=== PATIENT | male | born 1935 | race Caucasian/White ===

== ENCOUNTER 2019-01-12 09:15 | Inpatient (IN) ==
--- NOTE | 2019-01-12 09:59 | Diag Imaging Result Doc PS360 ---
EXAM: CT HEAD W/O CONTRAST 01/12/2019 HISTORY: STROKE TECHNIQUE: This exam was performed using automated exposure control, adjustment of mA or kV according to patient size, and/or use of iterative reconstruction technique. COMMENT: There are no previous studies available for comparison. There are calcifications in the globus pallidus bilaterally. There is CSF density fluid asymmetrically in the subdural space on the right side which may indicate a chronic subdural hematoma. This is a maximum of 12 mm in thickness. The brain is slightly shifted to the left by about 3 mm. There is no evidence of intracerebral mass or bleed. There is some diminishment in density of the insular cortex on the right side compared to the left (insular ribbon sign) which may be indicative of infarct. There is calcification of the pineal gland. The calvarium appears to be intact. There is mucosal thickening in many of the ethmoid air cells and both maxillary sinuses. There are no air-fluid levels. IMPRESSION: 1. Right chronic subdural fluid collection/hygroma. 2. Cortical encephalomalacia involving the right insula. This may indicate a chronic or subacute infarction. Electronically signed by Tristian Jon 01/12/2019 9:57 AM
[2019-01-12 10:05] LABS: BASO# 0.02 X1000 (0.0-0.2); BASO% 0.3 % (0.0-0.8); EOS# 0.09 X1000 (0.0-0.7); EOS% 1.3 % (0.0-10.0); HEMATOCRIT 33.4 % (42.0-52.0); HEMOGLOBIN 10.6 g/dL (14.0-18.0); IMM GRAN# 0.02 X1000 (0.0-0.04); IMM GRAN% 0.3 % (0.0-0.5); LYMPH# 0.37 X1000 (1.2-3.4); LYMPH% 5.3 % (20.5-51.1); MCH 31.2 PG (27-31); MCHC 31.7 g/dL (33-37); MCV 98.2 FL (81-99); MONO# 0.71 X1000 (0.11-0.59); MONO% 10.2 % (1.7-9.3); MPV 10.8 FL (7.4-10.4); NEUT# 5.73 X1000 (1.4-6.5); NEUT% 82.6 % (42.2-75.2); PLT 139 X1000 (130-400); RDW 17.5 % (11.5-14.5); WBC 6.94 X1000 (4.8-10.8)
[2019-01-12 10:24] LABS: MAGNESIUM 1.8 mg/dL (1.5-2.7)
[2019-01-12] MEDS ORDERED: ASPIRIN PR ONE (10:28)
[2019-01-12] MEDS ORDERED: NS 1,000 ML IV ONE ×2 (10:29→16:13)
--- NOTE | 2019-01-12 10:29 | Diag Imaging Result Doc PS360 ---
CHEST-PORTABLE - 01/12/2019 INDICATION: STROKE COMPARISON: 06/09/2018 FINDINGS: Positioning is improper. Stable right chest port in good position. There is increasing collapse of the left lung base with volume loss and opacification. IMPRESSION: Left basilar collapse. Electronically signed by Cameron Crane 01/12/2019 10:26 AM
[2019-01-12 10:43] LABS: AGAP 6; ALB/GLOB RATIO 1.2; ALBUMIN 3.6 g/dL (3.5-5.0); ALKALINE PHOSPHATASE 117 U/L (32-122); BUN 27 mg/dL (8-22); CALCIUM 9.8 mg/dL (8.8-10.2); CHLORIDE 106 mmol/L (98-107); COSMO 289; CREATININE 0.8 mg/dL (0.7-1.2); ESTIMATED GFR > 60; GLUCOSE 112 mg/dL (70-104); GOT 23 U/L (10-34); GPT 11 U/L (10-44); POTASSIUM 4.2 mmol/L (3.5-5.1); SODIUM 142 mmol/L (136-145); TCO2 30 mmol/L (25-35); TOTAL BILIRUBIN 0.83 mg/dL (0.20-1.00); TOTAL PROTEIN 6.7 g/dL (6.3-8.3)
--- NOTE | 2019-01-12 11:52 | EKG Report ---
Test Performed on : 01/12/2019 09:32:50 AM Test Reason : STORKE Blood Pressure : / mmHG Vent. Rate : 094 BPM Atrial Rate : 094 BPM P-R Int : 172 ms QRS Dur : 128 ms QT Int : 402 ms P-R-T Axes : 038 -81 117 degrees QTc Int : 502 ms Normal sinus rhythm. Right bundle branch block Left anterior fascicular block Bifascicular block Lateral infarct , age undetermined Abnormal ECG When compared with ECG of 20-APR-2017 06:41, LA interval has decreased Vent. rate has increased BY 44 BPM Questionable change in QRS duration Unconfirmed Result
[2019-01-12 13:42] LABS: BILIRUBIN URINE NEGATIVE (NEGATIVE); BLOOD URINE NEGATIVE (NEGATIVE); COLOR YELLOW; GLUCOSE URINE NEGATIVE (NEGATIVE); KETONE URINE NEGATIVE (NEGATIVE); LEUKOCYTES URINE NEGATIVE (NEGATIVE); NITRITE URINE NEGATIVE (NEGATIVE); PH URINE 6.5; PROTEIN URINE NEGATIVE (NEGATIVE); SP GRAVITY URINE 1.011; TURBIDITY URINE CLEAR (CLEAR); UR EPITHELIAL CELLS <10 /HPF (<10); URINE BACTERIA NEGATIVE /HPF; URINE RBC <10 /HPF (<10); URINE SOURCE CATH; URINE WBC <10 /HPF (<10); UROBILINOGEN URINE NORMAL (NORMAL)
[2019-01-12] MEDS ORDERED: ZOFRAN IV PRN (16:13)
--- NOTE | 2019-01-12 20:32 | HISTORY AND PHYSICAL ---
CHIEF COMPLAINT: Altered mental status, weakness on the left side, unable to stand, frequent falls. HISTORY OF PRESENT ILLNESS: This is an 83-year-old white gentleman, patient of Dr. Tineo. He lives by himself with his , for 42 years. He has been doing well until yesterday evening, driving the car, and basically came to the ER with not able to stand, falling and altered mental status. The ER doctor did not tell the whole story. CT scan showed right subdural hematoma. It is something new. No history of injury. He has some facial droop on the left side and also more weak in the left arm than the left leg. He has been in diapers. Most of the history was obtained from the patient's . PAST MEDICAL HISTORY: 1. Esophageal cancer, under care with Dr. Brown. 2. Hypertension. 3. Prostate cancer. 4. Hyperlipidemia. PAST SURGICAL HISTORY: Port-A-Cath on the right side; bilateral cataract surgery; status post PEG placement; cryoablation for prostate cancer in [place]. MEDICATIONS: 1. Coreg 6.25 p.o. b.i.d. 2. Finasteride 5 mg daily. 3. Lipitor 10 daily. 4. Nifedipine 30 mg daily. 5. Oxybutynin 5 mg daily. 6. Zofran as needed for nausea. 7. Hyzaar 100/25 daily. 8. Alkol 10 q.4 p.r.n. pain. ALLERGIES: Meperidine. SOCIAL HISTORY: He is , second time. 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 Lives with . Quit smoking 30 years ago. Drinks alcohol on a daily basis. Living Will: None reported. Flu vaccine in 2018. FAMILY HISTORY: Noncontributory. REVIEW OF SYSTEMS: He is babbling, and not offering any complaints due to confusion. PHYSICAL EXAMINATION: VITAL SIGNS: Temperature is 97 degrees, pulse is 90, blood pressure is 118/73. Six feet tall, 135 pounds. HEENT: Pupils equal and reactive to light. Weakness of the facial on the left side noted. NECK: Supple. No lymphadenopathy. CHEST: Bilateral air entry. Decreased breath sounds in the left side. HEART: Sounds are regular. ABDOMEN: Belly is soft, nontender. PEG placement was done. GENITOURINARY: He is in diapers. EXTREMITIES: No peripheral edema. NEUROLOGIC: He is confused. He has facial droop. Upper motor neuron facial palsy on the left side noted, along with left upper extremity is 3/5. Lower extremity 4/5. DIAGNOSTIC DATA: Chest x-ray: Shift in the cardiac silhouette on the left side, port on the right side. Volume loss and collapse of the left lung. EKG: Sinus tachycardia. CT head showed right chronic subdural fluid collection/hygroma; chronic encephalomalacia involving the right insula. ASSESSMENT AND PLAN: 1. An 83-year-old white male admitted to the hospital with altered mental status, with weakness on the left side due to chronic subdural hematoma/hygroma as per the CT. As per the family, it looks like acute event. I am going to repeat the MRI of the brain based on that. He needs a neurosurgical evaluation. 2. Hold the Lovenox. Intravenous fluids. Diet: NPO except the percutaneous endoscopic gastrostomy tube placement. 3. Intravenous Protonix and repeat the chest x-ray. MRI of the brain. Based on that, further recommendations will be followed. cc: Julio Bishop MD
[2019-01-12] MEDS: PROTONIX IV SCH (21:57)
[2019-01-12] MEDS: LIPITOR PO SCH (21:57)
[2019-01-12] MEDS: COREG PO SCH (21:57)
[2019-01-12] MEDS: SODIUM CHLORIDE 0.9% INJ SCH (21:57)
--- NOTE | 2019-01-13 07:32 | Diag Imaging Result Doc PS360 ---
EXAM: CHEST-2 VIEWS 01/13/2019 HISTORY: hypoxia TECHNIQUE: AP portable at 0537 COMMENT: There is increased opacification and volume loss in the left lower lobe compared to 01/12/2019. Otherwise there has been no appreciable change. IMPRESSION: Worsened atelectasis versus pneumonia left lower lobe. Electronically signed by Tristian Jon 01/13/2019 7:30 AM
[2019-01-13] MEDS: COREG PO SCH ×2 (08:59→21:54)
[2019-01-13] MEDS: PROSCAR PO SCH (08:59)
[2019-01-13] MEDS: ATIVAN IV PRN (18:31)
--- NOTE | 2019-01-13 19:21 | PROGRESS NOTE ---
DATE: 01/13/2019 SUBJECTIVE: The patient is more awake, very combative, agitated. MRI not able to do. I reviewed the CT findings with Dr. Jon. He has a chronic subdural hygroma that is not causing the weakness. There is no midline shift. He has infarct subacute on the right middle cerebral artery distribution. Mostly at the insula. Patient's at bedside. He is climbing on the rails. He has a PEG placement for esophageal cancer. EXAM: Vital signs: Temperature 97, pulse is 74, blood pressure 119/66. HEENT: Dry mucous membranes in the oral cavity and upper motor neuron facial paresis on the left side with more weakness in the left upper extremity. Chest: Bilateral air entry. Heart: Distant heart sounds. PEG was seen. Musculoskeletal: He is moving the legs pretty good. INVESTIGATIONS: None reported. Chest x-ray, left lower lobe collapse. ASSESSMENT: 1. Chronic subdural hygroma, stable. 2. 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 3. Esophageal cancer, status post PEG placement. PLAN: 1. is as follows: MRI of the brain if it is feasible. If not, repeat CT after 48 hours. Echocardiography, carotid ultrasound, physical therapy. Initiate the feeding through the PEG. Gentle hydration with IV Clinimix 50 mL/hour. 2. Will start with IV antibiotics for aspiration on the left lung. Needs a chest repeat and mucolytics if he is cooperative. 3. There is no need to transfer to [facility] at this time. 4. For agitation, we can use Ativan or Geodon. Continue neuro checks and the mechanical device for DVT prophylaxis. LEVEL OF DOCUMENTATION: 25 minutes. cc: Julio Bishop MD
[2019-01-13] MEDS: PROTONIX IV SCH (21:53)
[2019-01-13] MEDS: CLINIMIX E 4.25%-5% SOLUTION 1,000 ML IV SCH (21:53)
[2019-01-13] MEDS: SODIUM CHLORIDE 0.9% INJ SCH (21:53)
[2019-01-13] MEDS: LIPITOR PO SCH (21:54)
[2019-01-13] MEDS: ZOSYN 3.375 GM in NS 50 ML IV SCH (21:55)
[2019-01-13] MEDS: GEODON IM PRN (22:02)
[2019-01-13] MEDS: STERILE WATER INJ. INJ PRN (22:02)
[2019-01-14] MEDS: ZOSYN 3.375 GM in NS 50 ML IV SCH ×4 (05:05→22:24)
[2019-01-14 07:41] LABS: BASO# 0.01 X1000 (0.0-0.2); BASO% 0.1 % (0.0-0.8); EOS# 0.09 X1000 (0.0-0.7); EOS% 1.3 % (0.0-10.0); HEMATOCRIT 30.4 % (42.0-52.0); HEMOGLOBIN 9.4 g/dL (14.0-18.0); IMM GRAN# 0.03 X1000 (0.0-0.04); IMM GRAN% 0.4 % (0.0-0.5); LYMPH# 0.35 X1000 (1.2-3.4); LYMPH% 4.9 % (20.5-51.1); MCHC 30.9 g/dL (33-37); MCV 100.3 FL (81-99); MONO# 0.25 X1000 (0.11-0.59); MONO% 3.5 % (1.7-9.3); MPV 11.1 FL (7.4-10.4); NEUT# 6.38 X1000 (1.4-6.5); NEUT% 89.8 % (42.2-75.2); PLT 111 X1000 (130-400); RBC 3.03 XMIL (4.7-6.1); RDW 17.2 % (11.5-14.5); WBC 7.11 X1000 (4.8-10.8)
[2019-01-14 08:06] LABS: AGAP 11; BUN 24 mg/dL (8-22); CALCIUM 9.2 mg/dL (8.8-10.2); CHLORIDE 111 mmol/L (98-107); COSMO 293; CREATININE 0.8 mg/dL (0.7-1.2); ESTIMATED GFR > 60; GLUCOSE 105 mg/dL (70-104); POTASSIUM 3.8 mmol/L (3.5-5.1); SODIUM 145 mmol/L (136-145); TCO2 23 mmol/L (25-35)
[2019-01-14 08:33] LABS: LYMPHS 4 % (21-51); MONO 4 % (1-9); SEGS 92 % (42-75)
[2019-01-14] MEDS: COREG PO SCH ×2 (09:10→22:25)
[2019-01-14] MEDS: PROSCAR PO SCH (09:10)
[2019-01-14] MEDS: ATIVAN IV PRN (09:11)
--- NOTE | 2019-01-14 13:23 | PROGRESS NOTE ---
DATE: 01/14/2019 SUBJECTIVE: The patient has been sedated as he has been agitated. He will move his hands around a little bit. He has trouble moving his left arm from his CVA. Family member was in there and wondered about his diet. Dr. Bishop did place a pureed diet in the orders yesterday. OBJECTIVE: Vital Signs: Blood pressure 113/66, respirations 18, pulse 67, temperature 98.3 degrees Fahrenheit. Oxygen saturations are anywhere from 88% to 96% on room air. HEENT: Normocephalic. EOMs intact. PERRLA. Throat clear. Lungs: Rales in the left base. Heart: Regular rate and rhythm without murmurs, gallops, friction rubs. Abdomen: Soft. Active bowel sounds. No organomegaly or tenderness. Neurological: The patient is sedated at this time. Not moving his left arm much at all. LABORATORY STUDIES: Lab work shows white count 7100, hemoglobin 9.4, hematocrit 30.4. BNP was essentially normal. ASSESSMENT: 1. Cerebrovascular accident with left hemiparesis. 2. Esophageal cancer. 3. Agitation. 4. Pneumonia, left lower lobe. Chest x-ray from yesterday showed a little worsening of this. PLAN: We will continue support. We will get another chest x-ray tomorrow. cc: MD Julio Brooke Jr, MD
[2019-01-14] MEDS: CLINIMIX E 4.25%-5% SOLUTION 1,000 ML IV SCH (17:02)
[2019-01-14] MEDS: GEODON IM PRN (17:38)
[2019-01-14] MEDS: LIPITOR PO SCH (22:25)
[2019-01-14] MEDS: PROTONIX IV SCH (22:25)
[2019-01-14] MEDS: SODIUM CHLORIDE 0.9% INJ SCH (22:25)
[2019-01-15] MEDS: ATIVAN IV PRN ×3 (03:53→18:05)
[2019-01-15] MEDS: ZOSYN 3.375 GM in NS 50 ML IV SCH ×4 (04:30→21:55)
--- NOTE | 2019-01-15 09:17 | Diag Imaging Result Doc PS360 ---
EXAM: CHEST-PORTABLE - 01/15/2019 HISTORY: pneumonia TECHNIQUE: Portable chest COMPARISON: 01/13/2019 FINDINGS: Central venous catheter remains in place. Heart size appears within normal limits. There is left basilar opacity, with apparent volume loss, which appears stable to mildly decreased. There is mild interstitial infiltrate or scarring at the right base which appears stable. There is no large pleural effusion or pneumothorax identified. IMPRESSION: Stable to mildly decreased left basilar opacity with volume loss compared to prior. Electronically signed by Dom Archibald 01/15/2019 9:14 AM
[2019-01-15] MEDS: CLINIMIX E 4.25%-5% SOLUTION 1,000 ML IV SCH (11:55)
[2019-01-15] MEDS: PROSCAR PO SCH (11:55)
[2019-01-15] MEDS: COREG PO SCH ×2 (11:55→21:55)
--- NOTE | 2019-01-15 12:07 | PROGRESS NOTE ---
DATE: 01/15/2019 SUBJECTIVE: The patient is sedated. He calls out to his daughter a little bit but otherwise is not responsive. He has been agitated and that is why he has been sedated. OBJECTIVE: Vital Signs: Blood pressure is 104/66, respirations 19, pulse 85, temperature 97.7 degrees Fahrenheit. HEENT: Essentially normal. Neck: Supple. Lungs: Sound fairly clear to auscultation. He has a left lower lobe opacity or infiltrate. Chest x-ray shows some improvement in that, done today. Heart: Regular rate rhythm without murmurs, gallops, or friction rubs. Abdomen: Soft. Active bowel sounds. No organomegaly or tenderness. Neurological Examination: The patient is not responsive much at this time. He is not moving his left arm. ASSESSMENT: 1. Cerebrovascular accident. 2. Esophageal cancer. 3. Agitation. 4. Pneumonia, left lower lobe. PLAN: Continue support. Prognosis poor. cc: MD Julio Brooke Jr, MD
[2019-01-15] MEDS: GEODON IM PRN (14:48)
[2019-01-15] MEDS: STERILE WATER INJ. INJ PRN (14:48)
[2019-01-15] MEDS: LIPITOR PO SCH (21:55)
[2019-01-15] MEDS: PROTONIX IV SCH (21:55)
[2019-01-15] MEDS: DUONEB (A & A) INH SCH (22:06)
[2019-01-16] MEDS: ATIVAN IV PRN ×3 (03:57→15:59)
[2019-01-16] MEDS: ZOSYN 3.375 GM in NS 50 ML IV SCH ×4 (03:58→20:32)
[2019-01-16] MEDS: DUONEB (A & A) INH SCH ×4 (04:38→22:00)
--- NOTE | 2019-01-16 07:18 | PROGRESS NOTE ---
DATE: 01/16/2019 SUBJECTIVE: An 83-year-old gentleman admitted with altered mental status. Fall at home, left-sided weakness, found to have evolving stroke involving left middle cerebral artery, distribution of right middle cerebral artery. Patient does have left hemiparesis, confusion. History part was limited. The patient's was present. The patient does have a low-grade fever, confusion. According to , the patient does drink hard liquor 1 to 2 shots every day. Occasionally he does drink beer. No dysuria or hematuria. No diarrhea. Oral intake is poor. OBJECTIVE: Admission history and physical noted. Vital signs: Blood pressure 150/73, pulse 75, respiration 18, temperature 99.2 degrees. Neck: Supple. No JVD. Pupils are reacting to light. Lungs: Bibasilar crepitation. Heart: S1 and S2 heard. Abdomen: Soft, nontender. Bowel sounds present. PEG tube is in place. Extremities: No cyanosis, clubbing. No acute DVT. STONEWORKING SANDER: Patient is sleeping but arousable. He does have left-sided weakness. Uncooperative for detailed neurologic examination. ASSESSMENT: 1. Left-sided weakness due to stroke involving the right middle cerebral artery territory. 2. Chronic subdural hematoma. 3. History of metastatic esophageal malignancy. 4. Chronic obstructive pulmonary disease. 5. Hypertension. 6. Hyperlipidemia. 7. Prostate cancer. PLAN: I discussed the patient's condition and prognosis with the patient's , and there is also possibility of alcohol withdrawal. The patient is on Ativan. We will continue current treatment, close observation, physical therapy, and swallowing evaluation. I am going to get echocardiogram and carotid Doppler, chest x-ray done yesterday revealed left basilar opacity could be due to pneumonia. The patient is already on antibiotics. I am going to check appropriate labs. cc: MD Julio Dick MD
[2019-01-16 07:53] LABS: MAGNESIUM 1.9 mg/dL (1.5-2.7)
[2019-01-16 07:59] LABS: AGAP 10; ALB/GLOB RATIO 0.8; ALBUMIN 2.8 g/dL (3.5-5.0); ALKALINE PHOSPHATASE 91 U/L (32-122); BUN 33 mg/dL (8-22); CHLORIDE 113 mmol/L (98-107); COSMO 304; CREATININE 0.7 mg/dL (0.7-1.2); ESTIMATED GFR > 60; GLUCOSE 181 mg/dL (70-104); GOT 22 U/L (10-34); GPT 12 U/L (10-44); POTASSIUM 3.9 mmol/L (3.5-5.1); SODIUM 147 mmol/L (136-145); TCO2 24 mmol/L (25-35); TOTAL PROTEIN 6.3 g/dL (6.3-8.3)
[2019-01-16 08:46] LABS: BASO# 0.06 X1000 (0.0-0.2); EOS# 0.13 X1000 (0.0-0.7); EOS% 2.2 % (0.0-10.0); HEMATOCRIT 29.2 % (42.0-52.0); HEMOGLOBIN 9.1 g/dL (14.0-18.0); IMM GRAN# 0.05 X1000 (0.0-0.04); IMM GRAN% 0.8 % (0.0-0.5); LYMPH# 0.19 X1000 (1.2-3.4); LYMPH% 3.2 % (20.5-51.1); MCH 31.4 PG (27-31); MCHC 31.2 g/dL (33-37); MCV 100.7 FL (81-99); MONO# 0.21 X1000 (0.11-0.59); MONO% 3.5 % (1.7-9.3); MPV 11.7 FL (7.4-10.4); NEUT# 5.31 X1000 (1.4-6.5); NEUT% 89.3 % (42.2-75.2); PLT 111 X1000 (130-400); RDW 17.1 % (11.5-14.5); WBC 5.95 X1000 (4.8-10.8)
[2019-01-16] MEDS: M.V.I.-12 10 ML, FOLIC ACID 1 MG, MAGNESIUM SULFATE 1 GM, THIAMINE 100 MG in NS 1,000 ML IV SCH (08:56)
[2019-01-16] MEDS: THIAMINE 100 MG in NS 50 ML IV SCH (08:56)
[2019-01-16] MEDS: COREG PO SCH ×2 (09:04→20:32)
[2019-01-16] MEDS: PROSCAR PO SCH (09:05)
[2019-01-16 09:24] LABS: BANDS 2 % (0-1); EOS 2 % (1-10); LYMPHS 4 % (21-51); MONO 2 % (1-9); SEGS 90 % (42-75)
[2019-01-16] MEDS: GEODON IM PRN ×2 (11:22→20:40)
[2019-01-16] MEDS: CLINIMIX E 4.25%-5% SOLUTION 1,000 ML IV SCH (11:59)
--- NOTE | 2019-01-16 13:57 | Diag Imaging Result Doc PS360 ---
EXAM: MRI BRAIN W/WO CONTRAST INDICATION: CVA COMPARISON: CT dated 01/12/2019. No prior MRIs available for comparison. FINDINGS: There is restricted diffusion in the right MCA distribution indicating an aging acute infarct mainly involving the right frontal lobe and right temporal lobe but also the right parietal lobe. There is corresponding FLAIR/T2 hyperintensity and some of the ADC map low signal has begun to normalize indicating that it is becoming subacute. This was seen is low-attenuation on the previous CT. There is suggestion of mild periventricular and subcortical white matter microangiopathy. The extra-axial fluid collection overlying the right cerebral hemisphere seen on the prior CT is identified. It exhibits CSF signal on all sequences suggesting a hygroma. There is no discrete intracranial mass, mass effect, or acute intracranial hemorrhage. The surrounding soft tissues and bony structures are essentially unremarkable. IMPRESSION: 1.Aging acute to subacute right MCA distribution infarct as described. 2.Stable hygroma overlying the right cerebral hemisphere. Electronically signed by Orlin Thomas 01/16/2019 1:54 PM
[2019-01-16] MEDS ORDERED: LASIX IV ONE (17:05)
[2019-01-16] MEDS: PROTONIX IV SCH (20:31)
[2019-01-16] MEDS: LIPITOR PO SCH (20:32)
[2019-01-16] MEDS: SODIUM CHLORIDE 0.9% INJ SCH (20:32)
[2019-01-17] MEDS: ZOSYN 3.375 GM in NS 50 ML IV SCH ×6 (01:17→22:45)
[2019-01-17] MEDS: DUONEB (A & A) INH SCH ×4 (03:23→21:05)
[2019-01-17] MEDS: THIAMINE 100 MG in NS 50 ML IV SCH (06:17)
[2019-01-17] MEDS: CLINIMIX E 4.25%-5% SOLUTION 1,000 ML IV SCH ×2 (06:17→08:31)
[2019-01-17] MEDS ORDERED: LASIX IV ONE (06:32)
[2019-01-17 07:53] LABS: BASO# 0.01 X1000 (0.0-0.2); BASO% 0.1 % (0.0-0.8); EOS# 0.05 X1000 (0.0-0.7); EOS% 0.7 % (0.0-10.0); HEMATOCRIT 30.9 % (42.0-52.0); HEMOGLOBIN 9.7 g/dL (14.0-18.0); IMM GRAN# 0.03 X1000 (0.0-0.04); IMM GRAN% 0.4 % (0.0-0.5); LYMPH# 0.27 X1000 (1.2-3.4); LYMPH% 3.6 % (20.5-51.1); MCH 31.3 PG (27-31); MCHC 31.4 g/dL (33-37); MCV 99.7 FL (81-99); MONO# 0.38 X1000 (0.11-0.59); MONO% 5.1 % (1.7-9.3); MPV 10.8 FL (7.4-10.4); NEUT# 6.74 X1000 (1.4-6.5); NEUT% 90.1 % (42.2-75.2); PLT 132 X1000 (130-400); RDW 17.1 % (11.5-14.5); WBC 7.48 X1000 (4.8-10.8)
[2019-01-17 08:08] LABS: BANDS 4 % (0-1); LYMPHS 2 % (21-51); MONO 2 % (1-9); SEGS 92 % (42-75)
--- NOTE | 2019-01-17 08:17 | ECHO REPORT ---
ORDER DATE: 01/13/2019 MEASUREMENTS: Left ventricular end-diastolic diameter 4.7, end systolic diameter 3.1, septal thickness 1.2, posterior wall thickness 1.2, aortic root 4.1, left atrium 5.1. SUMMARY: 1. Adequate quality study. 2. Very mild sclerosis of trileaflet aortic valve demonstrated with adequate aortic valve opening evident. Peak gradient across aortic valve is 17 mmHg. There is mild aortic regurgitation. Mitral, tricuspid and pulmonic valves are without evidence of structural abnormality with mild mitral regurgitation, mild to moderate tricuspid regurgitation, and mild pulmonic insufficiency. The estimated systolic PA pressure by Doppler is 45 mmHg suggesting mild pulmonary hypertension. The aortic root is mildly enlarged. 3. Normal left ventricular chamber size with mild concentric left hypertrophy is suggested. Estimated left ejection fraction appears to be at least 60%. No regional wall motion abnormalities evident. Doppler suggests grade 1 left ventricular diastolic dysfunction. Left atrium is mild to moderately enlarged. There appears to be possible mass behind left atrium projecting on the posterior aspect of the left atrium on some views. Right atrium, right ventricle are normal in size with grossly preserved right ventricular systolic function. 4. No pericardial effusion. 5. Appearance of inferior vena cava suggests normal central venous pressure. cc: MD Julio Aparicio MD
[2019-01-17] MEDS: PROSCAR PO SCH (08:26)
[2019-01-17] MEDS: ATIVAN IV PRN ×3 (08:26→16:22)
[2019-01-17] MEDS: COREG PO SCH ×2 (08:26→22:45)
--- NOTE | 2019-01-17 09:28 | PROGRESS NOTE ---
DATE: 01/17/2019 SUBJECTIVE: Mr. Benavides is doing fair. The patient does not have any high-grade fever or chills. The speech is slurred. Tolerating feeding well. No diarrhea. History part limited. Admitted with left-sided weakness, multiple medical problems with metastatic esophageal malignancy, prostate cancer, longstanding hypertension, possible COPD. OBJECTIVE: Vital Signs: Noted. Skin: Senile turgor. Neck: Supple. No JVD. Lungs: Bilateral good air entry present. Decreased air entry, both the bases. CVS: S1 and S2 heard. Abdomen: Soft, nontender. Bowel sounds present. PEG tube is in place. GAME TESTER: The patient does have cerebrovascular accident with left-sided weakness, slurred speech. Uncooperative for detailed neurologic examination. Diagnostic Data: I do not have echocardiogram and carotid Doppler results yet. Patient had MRI done which revealed acute to subacute right MCA distribution infarct involving the right frontotemporal lobe, right parietal lobe, and evidence of stable hygroma overlying the right cerebral hemisphere. ASSESSMENT: 1. The patient does have a large cerebrovascular accident with left hemiparesis. 2. His other problems include atelectasis versus pneumonia - on antibiotics, hypertension, metastatic esophageal cancer, prostate cancer. PLAN: Overall, prognosis is poor. I had a lengthy discussion with the patient's . The patient was very active the last few months. The requested Do Not Resuscitate 1. I know the patient and he does not want to live this type of life. I have made him Do Not Resuscitate 1. I am planning to discharge him to rehab hopefully within a day or two. Overall prognosis fair to guarded. Family is aware of the prognosis. Lab done yesterday reviewed. cc: MD Julio Dick MD
[2019-01-17] MEDS: M.V.I.-12 10 ML, FOLIC ACID 1 MG, MAGNESIUM SULFATE 1 GM, THIAMINE 100 MG in NS 1,000 ML IV SCH (11:55)
[2019-01-17] MEDS: STERILE WATER INJ. INJ PRN (11:55)
[2019-01-17] MEDS: GEODON IM PRN (11:55)
[2019-01-17] MEDS: LIPITOR PO SCH (22:46)
[2019-01-17] MEDS: SODIUM CHLORIDE 0.9% INJ SCH (22:46)
[2019-01-17] MEDS: PROTONIX IV SCH (22:46)
[2019-01-18] MEDS: DUONEB (A & A) INH SCH ×3 (03:15→16:10)
[2019-01-18] MEDS: ZOSYN 3.375 GM in NS 50 ML IV SCH ×3 (03:35→10:56)
[2019-01-18] MEDS: GEODON IM PRN ×2 (03:35→11:37)
[2019-01-18] MEDS: CLINIMIX E 4.25%-5% SOLUTION 1,000 ML IV SCH (03:36)
[2019-01-18] MEDS: ATIVAN IV PRN ×3 (06:28→15:18)
[2019-01-18] MEDS: THIAMINE 100 MG in NS 50 ML IV SCH (06:52)
[2019-01-18 07:32] LABS: AGAP 11; ALB/GLOB RATIO 0.7; ALBUMIN 3.1 g/dL (3.5-5.0); ALKALINE PHOSPHATASE 103 U/L (32-122); BUN 29 mg/dL (8-22); CALCIUM 9.8 mg/dL (8.8-10.2); CHLORIDE 110 mmol/L (98-107); COSMO 301; CREATININE 0.8 mg/dL (0.7-1.2); ESTIMATED GFR > 60; GLUCOSE 117 mg/dL (70-104); GOT 25 U/L (10-34); GPT 14 U/L (10-44); POTASSIUM 3.3 mmol/L (3.5-5.1); SODIUM 148 mmol/L (136-145); TCO2 27 mmol/L (25-35); TOTAL BILIRUBIN 0.59 mg/dL (0.20-1.00); TOTAL PROTEIN 7.3 g/dL (6.3-8.3)
--- NOTE | 2019-01-18 08:14 | Carotid Study ---
DATE: 01/12/2019 PROCEDURE: Carotid duplex study. REFERRING PHYSICIAN: DR. Bishop. INTERPRETING PHYSICIAN: Dr. Chester Lang. TECH: [place]. INDICATIONS: Syncope and stroke. COMPARISON STUDY: 04/17/2016. OBSERVED DATA RIGHT LEFT Brachial Blood Pressure Carotid Pulse Bruits: Carotid/Sub DIAGRAM OF ULTRASOUND IMAGING R L RIGHT INT EXT INT EXT LEFT Rios (cm/s) Rios (cm/s) Subclavian 49/0 Subclavian 61/0 CCA Proximal 78/13 CCA Proximal 73/14 CCA Distal 57/17 CCA Distal 42/12 Bulb 47/20 Bulb 40/14 ICA Proximal 44/12 ICA Proximal 27/9 ICA Mid 40/14 ICA Mid 54/19 ICA Distal 75/24 ICA Distal 56/25 ECA 68/8 ECA 62/14 Vertebral 51/21 Vertebral 43/13 ICA/CCA Ratio 0.96 ICA/CCA Ratio 0.78 % Stenosis 0-39% % Stenosis 0-39% FINDINGS: There is minimal atherosclerotic disease of the common and internal carotid arteries. There are no ulcerative plaques or hemodynamically significant lesions. There is antegrade vertebral flow bilaterally. PHYSICIAN INTERPRETATION: There is overall mild atherosclerotic disease of the carotid artery systems bilaterally and unchanged from the prior study. cc: MD Julio aMcedo MD
[2019-01-18] MEDS: COREG PO SCH (08:22)
[2019-01-18] MEDS: PROSCAR PO SCH (08:22)
[2019-01-18] MEDS: M.V.I.-12 10 ML, FOLIC ACID 1 MG, MAGNESIUM SULFATE 1 GM, THIAMINE 100 MG in NS 1,000 ML IV SCH (08:23)
--- NOTE | 2019-01-18 08:49 | DISCHARGE SUMMARY ---
ADMISSION DATE: 01/12/2019 DISCHARGE DATE: FINAL DISCHARGE DIAGNOSES: 1. Acute cerebrovascular accident involving the right middle cerebral artery territory with left- sided weakness. 2. Altered mental status. 3. Atelectasis versus pneumonia in the lower lung field. 4. History of esophageal cancer with metastases. 5. Metabolic encephalopathy. 6. History of prostate cancer. 7. Hypertension. 8. Hyperlipidemia. 9. Osteoarthritis. 10. Mild cognitive impairment. 11. Urinary tract infection. HISTORY OF PRESENT ILLNESS: Mr. Benavides is an 83-year-old, white gentleman with multiple medical problems. The patient had a fall at home. He was weak and was brought to the emergency room. At home, the patient was falling and had altered mental status. His speech was getting slurred. Initial CT scan impression was questionable subdural hematoma. He also had some facial droop on the left side and weakness in the left upper and lower limbs. The patient was admitted to a telemetry bed. The patient was given IV hydration, symptomatic treatment, and close observation. We repeated blood work and MRI of the brain. His MRI revealed acute to subacute stroke involving the right middle cerebral artery distribution and stable hygroma overlying the right cerebral hemisphere. Chest x-ray was showing possible left lower lobe pneumonia. The patient's speech remains slurred. Oral intake poor. The patient had a PEG tube placed over a year ago when he was getting radiation and chemo for his esophageal cancer. The patient's clinical condition was not improving much. Stroke involving much larger part of his right cerebral hemisphere. The patient had multiple medical problems. Overall prognosis poor. We did start physical therapy. The plan is to discharge patient to a fpc for rehab and comfort care. Discussed with the patient's about his condition and prognosis. As per patient's wishes, she requested DNR 1 and I did agree with her. I know the patient for the last few years and I do not think the patient wants to live this type of life. I am going to discharge him to a fpc with comfort care. PHYSICAL EXAMINATION: Vital signs: Noted. Neck: Supple. No JVD. Lungs: Bibasilar crepitations. Decreased air entry both bases. CVS: S1 and S2 heard. Abdomen: Soft, nontender. Bowel sounds present. SPOT REMOVER: The patient is sleeping. He did have Ativan. Left-sided weakness. Uncooperative for detailed exam. LABORATORY DATA: CBC done on 01/17/2019: Hemoglobin 9.7, hematocrit 30.9, WBC count 7.48, platelets 132,000. Electrolytes done on 12/16/2018: BUN 33 creatinine 0.7. ProBNP 2299. Potassium 3.9, chloride 113, sodium 147. DIAGNOSTIC STUDIES: Echocardiogram results reviewed. Last chest x-ray done on 12/15/2018, stable to mildly decreased left basilar opacity with volume loss compared to prior. Overall prognosis is poor. is aware of the prognosis. Will discharge the patient. Will continue feeding the patient through the PEG tube. Aspiration precautions. Oxygen. Bronchodilator treatment. Continue antibiotics. cc: MD Julio Dick MD
[2019-01-18] MEDS: STERILE WATER INJ. INJ PRN (11:37)
[2019-01-18 13:24] VITALS: BP 124/89
--- NOTE | 2019-01-18 16:26 | PROVIDER DOCUMENTATION ---
This chart was entered by Jil Mackenzie Scribe, acting as scribe for Robert Head MD. HPI-Neurological Disorder - General Chief Complaint: Weakness Stated Complaint: stroke like sx Time Seen by Provider: 01/12/19 09:17 Source: family () Allergies/Adverse Reactions: Patient Allergies Allergy/AdvReac Type Severity Reaction Status Date / Time meperidine [From Demerol] Allergy Unknown Verified 04/16/17 10:46 Home Medications: Home Medication List Medication Instructions Recorded Confirmed Last Taken Type ATORVAstatin [Lipitor] 10 mg PO QHS 04/16/17 04/20/17 04/19/17 19:30 History Carvedilol 6.25 mg PO BID 04/16/17 04/20/17 04/19/17 19:00 History Finasteride 5 mg PO DAILY 04/16/17 04/20/17 04/19/17 08:30 History Losartan/Hydrochlorothiazide 1 each PO DAILY 04/16/17 04/20/17 04/19/17 08:30 History [Losartan-Hctz 100-25 mg Tab] Nifedipine [Adalat cc] 60 mg PO DAILY 04/16/17 04/20/17 04/19/17 08:30 History Oxybutynin [Ditropan] 5 mg PO DAILY 04/16/17 04/20/17 04/19/17 08:30 History Pantoprazole [Protonix] 40 mg PO DAILY@0700 04/16/17 04/20/17 04/19/17 08:30 History Hydrocodone/Acetaminophen [[place] 1 each PO Q4H PRN PRN #30 tablet 04/20/17 Unknown Rx 10-325 Tablet] Multivitamin with Iron [Daily 1 each PO DAILY #100 tablet 04/20/17 Unknown Rx Multivitamin with Iron] Ondansetron HCl [Zofran] 4 mg PO Q4H PRN PRN #10 tablet 04/20/17 Unknown Rx - History of Present Illness-Neuro Nature of Presenting Problem: Patient is a 83 year old male who present to the ED via EMS with stroke like symptoms. Patient's states symptoms of left side weakness, slurred speech, aphasia and being disoriented. Patient's states symptoms started this morning around 0600. Patient's states patient was up and driving yesterday. Patient's states patient has metastatic esophageal cancer. Severity: reports: mild Onset/Duration: reports: this morning (0600) Timing: reports: still present Context: reports: impaired speech (slurred and aphasia), other (AMS and weakness ) Character of Altered Mental Status: reports: disoriented Character of Deficits: reports: new weakness, impaired speech (slurred and aphasia) New weakness or altered sensation location:: reports: LUE, LLE Cognitive Baseline: alert, oriented x3 Gait Baseline: walks without assistance Associated Symptoms: reports: denies symptoms Similar Symptoms Previously?: No Recently seen or treated by another doctor?: No Review of Systems - Adult - REVIEW OF SYSTEMS - ADULT ROS:: ROS per family () Constitutional: reports: no symptoms reported Eyes: reports: no symptoms reported Ears, Nose, Mouth & Throat: reports: no symptoms reported Cardiovascular: reports: no symptoms reported Respiratory: reports: no symptoms reported Gastrointestinal: reports: no symptoms reported Genitourinary: reports: no symptoms reported Musculoskeletal: reports: no symptoms reported Integumentary: reports: no symptoms reported Neurological: reports: slurred speech, other (AMS - disoriented. LUE weakness. aphasia). denies: dizziness/vertigo, headache/migraines, numbness, seizure, syncope Psychiatric: reports: no symptoms reported Endocrine: reports: no symptoms reported Hematologic/Lymphatic: reports: no symptoms reported Allergic/Immunologic: reports: no symptoms reported All Other Systems: Reviewed and Negative Past History - Adult - PAST MEDICAL HISTORY-ADULT Review of Records: reports: Nursing Assessment Review, Medications Reviewed, Social history reviewed & non-contributory. Major Childhood Illnesses: reports: denies history Cardiovascular: reports: denies history Respiratory: reports: denies history Gastrointestinal: reports: cancer Obstetrical/Gynecological: reports: denies history Genitourinary: reports: denies history Musculoskeletal: reports: denies history Neurological: reports: denies history Psychiatric: reports: denies history Endocrine/Immune: reports: denies history Other Conditions: reports: denies history - PRIOR SURGERIES/PROCEDURES Surgical/Procedure History: reports: reviewed, not pertinent - IMMUNIZATION STATUS Childhood Immunizations: See Nurse Assessment Flu Vaccine: See Nurse Assessment - FAMILY HISTORY Family History: reviewed, not pertinent - SOCIAL HISTORY Smoking: cigarettes (former) Substance Use: denies Living Situation: family Physical Exam- Neurological - Physical Exam-Neuro Initial Vital Signs Reviewed: Yes General Appearance: alert, no apparent distress Eye Exam: bilateral eye: normal inspection HENMT: moist mucous membranes, normal ENT inspection Head Injury: no evidence of injury Neck: normal inspection Respiratory: chest non-tender, lungs clear, normal breath sounds Cardiovascular: normal peripheral pulses, regular rate, rhythm Abdominal Exam: normal bowel sounds, non tender, soft, other (PEG tube present) tool mechanic Exam: abnormal speech (slurred and aphasia) Motor/Sensory: weak motor strength LUE (moderate), weak motor strength LLE (mild ) Neurologic: aphasia, motor weakness (LUE and LLE), other (slurred speech) Integumentary: normal color, normal turgor, warm/dry Psych/Mental Status: other (disoriented) Progress - PLAN OF CARE/RESULTS Progress/Plan/Lab Results: Vital Signs - 8 hr 01/12/19 09:31 Temperature 98.4 F Pulse Rate 95 H Respiratory Rate 19 Blood Pressure 109/75 O2 Sat by Pulse Oximetry 96 Laboratory Results - last 24 hr 01/12/19 01/12/19 01/12/19 09:38 09:38 09:38 WBC 6.94 RBC 3.40 L Hgb 10.6 L Hct 33.4 L MCV 98.2 MCH 31.2 H MCHC 31.7 L RDW Std Deviation 17.5 H Plt Count 139 MPV 10.8 H Immature Gran % (Auto) 0.3 Neut % (Auto) 82.6 H Lymph % (Auto) 5.3 L [place] % (Auto) 10.2 H Eos % (Auto) 1.3 Baso % (Auto) 0.3 Immature Gran # (Auto) 0.02 Neut # (Auto) 5.73 Lymph # (Auto) 0.37 L [place] # (Auto) 0.71 H Eos # (Auto) 0.09 Baso # (Auto) 0.02 Sodium 142 Potassium 4.2 Chloride 106 Carbon Dioxide 30 Anion Gap 6 BUN 27 H Creatinine 0.8 Estimated GFR/1.73 m2 > 60 BUN/Creatinine Ratio 34 Glucose 112 H POC Glucose Calculated Osmolality 289 Calcium 9.8 Magnesium 1.8 Total Bilirubin 0.83 AST 23 ALT 11 Alkaline Phosphatase 117 Troponin T Total Protein 6.7 Albumin 3.6 Globulin 3.1 Albumin/Globulin Ratio 1.2 Lipase 55 01/12/19 01/12/19 09:38 10:28 WBC RBC Hgb Hct MCV MCH MCHC RDW Std Deviation Plt Count MPV Immature Gran % (Auto) Neut % (Auto) Lymph % (Auto) [place] % (Auto) Eos % (Auto) Baso % (Auto) Immature Gran # (Auto) Neut # (Auto) Lymph # (Auto) [place] # (Auto) Eos # (Auto) Baso # (Auto) Sodium Potassium Chloride Carbon Dioxide Anion Gap BUN Creatinine Estimated GFR/1.73 m2 BUN/Creatinine Ratio Glucose POC Glucose 108 H Calculated Osmolality Calcium Magnesium Total Bilirubin AST ALT Alkaline Phosphatase Troponin T < 0.010 Total Protein Albumin Globulin Albumin/Globulin Ratio Lipase Orders Category Date Time Status Saline Loc NOW Care 01/12/19 09:19 Active CHEST-PORTABLE [RAD] Stat Exams 01/12/19 09:[address] HEAD W/O CONTRAST [CT] Stat Exams 01/12/19 09:18 Completed CBC WITH ELECTRONIC DIFF [HEME] Stat Lab 01/12/19 09:38 Completed COMPREHENSIVE METABOLIC PANEL [CHEM] Stat Lab 01/12/19 09:38 Completed LIPASE [CHEM] Stat Lab 01/12/19 09:38 Completed MAGNESIUM [CHEM] Stat Lab 01/12/19 09:38 Completed TROPONIN T Stat Lab 01/12/19 09:38 Completed URINALYSIS W/POSS RFLX CULT [URINALYSIS] Stat Lab 01/12/19 09:21 Uncollected 0.9% Sodium Chloride Inj [Ns] 1,000 ml Med 01/12/19 10:29 Discontinued IV 999 mls/hr Aspirin Med 01/12/19 10:28 Discontinued 300 mg [place] NOW ONE EKG [EKG] Stat Ther 01/12/19 09:19 Draft Result Diagrams: 01/12/19 09:38 01/12/19 09:38 - EKG 1 Time of EKG reading by physician:: 09:32 EKG Read and Signed by:: Robert Head EKG Interpretation (*Must complete 3 of following elements*): Abnormal (lateral infarct, age undetermined) Rate: 94 Rhythm: normal sinus rhythm QRS: RBB [place] Interval: normal Comments: left anterior fascicular block; bifascicular block; - XRAY 1 XRAY Study: Chest Impression: See EMR Report ( CHEST-PORTABLE - 01/12/2019 INDICATION: STROKE COMPARISON: 06/09/2018 FINDINGS: Positioning is improper. Stable right chest port in good position. There is increasing collapse of the left lung base with volume loss and opacification. IMPRESSION: Left basilar collapse. Electronically signed by Cameron Crane 01/12/2019 10:26 AM 01/12/19 1026 Interpreting Physician: Cameron Crane MD Dictated Date/Time: 01/12/19 1025 cc: Robert Head MD; Kirk Tineo MD) - CT/MRI 1 CT Study: Head Impression: See EMR Report (EXAM: CT HEAD W/O CONTRAST 01/12/2019 HISTORY: STROKE TECHNIQUE: This exam was performed using automated exposure control, adjustment of mA or kV according to patient size, and/or use of iterative reconstruction technique. COMMENT: There are no previous studies available for comparison. There are calcifications in the globus pallidus bilaterally. There is CSF density fluid asymmetrically in the subdural space on the right side which may indicate a chronic subdural hematoma. This is a maximum of 12 mm in thickness. The brain is slightly shifted to the left by about 3 mm. There is no evidence of intracerebral mass or bleed. There is some diminishment in density of the insular cortex on the right side compared to the left (insular ribbon sign) which may be indicative of infarct. There is calcification of the pineal gland. The calvarium appears to be intact. There is mucosal thickening in many of the ethmoid air cells and both maxillary sinuses. There are no air- fluid levels. IMPRESSION: 1. Right chronic subdural fluid collection/ hygroma. 2. Cortical encephalomalacia involving the right insula. This may indicate a chronic or subacute infarction. Electronically signed by Tristian Jon 01/12/2019 9:57 AM 01/12/19 0957 Interpreting Physician: Tristian Jon MD Dictated Date/Time: 01/12/19 0946 cc: Robert Head MD; Kirk Tineo MD) - CONSULTS/PCP/HOSPITALIST Notification #1 *Consult/PCP/Hospitalist*: Dr. Bishop Time Discussed: 12:19 Reason/Comments: Dr. Head consulted with Dr. Bishop about patient. Consult Disposition: Admit Departure - Departure Date of Disposition Decision: 01/12/19 Time of Disposition Decision: 12:20 DIAGNOSIS: Acute ischemic stroke, Esophagus cancer Disposition: ADMITTED INPATIENT 09 Certified Medical Emergency: Emergent Condition: Stable Referrals and Follow-Ups: Kirk Tineo MD [Primary Care Provider] - - Critical Care Note This patient required my direct & personal management of CC.: Yes Total Time (mins): 25 Critical Care Statement: This patient required my direct personal management to treat or rule out processes, the absence of which, could potentiallly result in sudden, clinically significant life or limb threatening deterioration. Attestation - Physician/ PALAK Attestation The physician spent face to face time with patient:: Yes Advanced Practice Provider documentation review:: Supervising physician onsite and consulted in the evaluation and care of this patient. The physician did have a face to face encounter with the patient. - NIH Stroke Scale NIH Type: Initial Evaluation Level of Consciousness: 0-Alert LOC Questions (ask month and age): 1-Answers One Correctly LOC Commands (ask to open & close eyes;make a fist, let go): 0-Obeys Both Correctly Best Gaze (horizontal eye movement): 0-Normal Visual (use finger movement, counting or visual threat): 0-No Visual Loss Facial Palsy (show teeth or raise eyebrows & close eyes tght: 0-Symmetrical Movement Motor Function-left arm: 2-Some Effort Against [place] Motor Function-right arm: 0-Normal Motor Function-left le-Drift Motor Function-right le-Normal Limb Ataxia([id number], or heel to riley): 0-No Ataxia Sensory(pin prick to face,arms,trunk,legs-compare side/side): 0-No Ataxia Best Language(name item/read sentence.Ex-Down to Earth): 1-Mild to Moderate Aphasia Dysarthria(Pt read words or say words Ex.Mama,Tip-Top,Thanks: 1-Mild-Mod Slurring Words Extinction and Inattention: 1-Partial Neglect NIH Total Score: 7 Stroke tPA Guidelines - Consultation Candidate for:: NOT A CANDIDATE (patient is not a candidate due to being out of the time window and the patient currently has cancer.) This chart was documented by the indicated scribe, (Jil Mackenzie Scribe) and accurately reflects the services I performed and decisions made by me, Robetr Head MD, as attested by the provider's signature.
== END 2019-01-18 17:24 | DRG 64 ==
LOC: ED 09:15 → 3N 15:53
PROVIDERS: ADMIT Internal Medicine; ATTEND Internal Medicine
CPT/HCPCS: 51701; 70450; 70553; 71010; 71020; 71045; 71046; 80048; 80053; 81001; 82550; 82948; 83690; 83735; 83880; 84100; 84484; 85025; 92610; 93005; 93306; 93880; 94640; 94761; 94762; 94799; 96360; 97110; 97162; 99285; A9270; A9579; C9113; J1940; J2060; J2543; J3411; J3475; J3486; J7030; P9612; S0138; S0164; XXXXX